=== PATIENT | female | born 1990 | race Native Hawaiian/Other Pacific Islander ===

== ENCOUNTER 2016-12-18 11:46 | Emergency (ER) | payer OTHER ==
[~2016-12-18] VITALS: Ht 170.2 cm; Wt 104.3 kg
[2016-12-18 12:39] VITALS: BP 142/68; TEMP 98.9
== END 2016-12-18 12:47 | disposition home or self-care (01) ==
LOC: ED 11:46
DX: J06.9 Acute upper respiratory infection, unspecified (principal); Z33.1 Pregnant state, incidental
CPT/HCPCS: 99281

== ENCOUNTER 2018-03-08 23:11 | Outpatient (CLI) | payer OTHER | END 2018-03-08 23:14 | disposition short-term general hospital (02) | LOC: AMB 23:11 | DX: R11.2 Nausea with vomiting, unspecified (principal); R53.1 Weakness | CPT/HCPCS: A0425; A0427 ==

== ENCOUNTER 2018-03-08 23:16 | Emergency (ER) | payer OTHER ==
[~2018-03-08] VITALS: Ht 172.7 cm; Wt 105.2 kg
[2018-03-09 00:11] LABS: PLATELET COUNT 252 K/uL (152-353)
[2018-03-09 03:38] VITALS: BP 103/56; TEMP 98.9
== END 2018-03-09 03:39 | disposition home or self-care (01) ==
LOC: ED 23:16
PROVIDERS: Specialist
DX: R11.2 Nausea with vomiting, unspecified (principal); E86.9 Volume depletion, unspecified
CPT/HCPCS: 80048; 85027; 96365; 99284; J3411; J3475; J3490

== ENCOUNTER 2022-07-25 04:14 | Emergency (ER) | payer OTHER ==
[~2022-07-25] VITALS: Ht 170.2 cm; Wt 108.9 kg
[2022-07-25 04:54] LABS: PLATELET COUNT 248 K/uL (152-353)
[2022-07-25 05:14] LABS: POTASSIUM 4.1 mmol/L (3.6-5.2)
[2022-07-25 06:45] VITALS: BP 134/80
== END 2022-07-25 06:45 | disposition home or self-care (01) ==
LOC: ED 04:14
PROVIDERS: Emergency Medicine Emergency Medical Services
DX: N20.1 Calculus of ureter (principal)
CPT/HCPCS: 36415; 80048; 81000; 81025; 85008; 85027; 96360; 96374; 96375; 99284; J1885; J2270; J2405; Q9963

== ENCOUNTER 2022-11-03 10:06 | Emergency (ER) | payer OTHER ==
[~2022-11-03] VITALS: Ht 170.2 cm; Wt 104.3 kg
[2022-11-03 10:20] VITALS: BP 161/96; TEMP 98.1
[2022-11-03 10:50] LABS: PLATELET COUNT 252 K/uL (152-353)
== END 2022-11-03 12:50 | disposition home or self-care (01) ==
LOC: ED 10:06
PROVIDERS: Internal Medicine
DX: R10.11 Right upper quadrant pain (principal)
CPT/HCPCS: 36415; 80053; 85027; 99283

== ENCOUNTER 2023-05-11 14:55 | Emergency (ER) | payer OTHER ==
[~2023-05-11] VITALS: Ht 170.2 cm; Wt 108.9 kg
[2023-05-11 15:00] VITALS: BP 138/108; TEMP 98.4
== END 2023-05-11 16:17 | disposition home or self-care (01) ==
LOC: ED 14:55
DX: S09.90XA Unspecified injury of head, initial encounter (principal); F07.81 Postconcussional syndrome; W22.8XXA Striking against or struck by other objects, initial encounter
CPT/HCPCS: 81025; 99283